=== PATIENT | female | born 1995 | race Two or more races ===

== ENCOUNTER 2021-10-17 17:25 | Inpatient (IN) | payer MEDICAID ==
[~2021-10-17] VITALS: Ht 165.1 cm; Wt 54.6 kg
[2021-10-17] MEDS: PANTOPRAZOLE 40 MG VIAL IV SCH (01:55)
--- NOTE | 2021-10-17 17:50 | NUR ---
TO ER BED 16, C/O LLQ ABD PAIN WITH VOMITING -DIARRHEA STARTED YESTERDAY, P/S 03/04, AAOX3, BREATHING EVEN AND NON LABORED, AWAITING MD MOROCHO
--- NOTE | 2021-10-17 18:30 | NUR ---
URINE COLLECTED AND SENT TO LAB
--- NOTE | 2021-10-17 18:45 | NUR ---
SALINE LOCK ESTABLISHED, BLOOD DRAWN AND SENT TO LAB
[2021-10-17] MEDS ORDERED: MORPHINE SULFATE INJ 2 MG/ML DISP.SYRIN ONE (18:54)
[2021-10-17] MEDS ORDERED: ONDANSETRON HCL/PF 4 MG/2 ML VIAL ONE (18:54)
[2021-10-17] MEDS ORDERED: ONDANSETRON HCL 4 MG/5 ML SOLUTION PO ONE ×2 (19:00)
[2021-10-17] MEDS ORDERED: IV NS 0.9% 1,000 ML BAG IV ONE ×3 (19:00→22:00)
[2021-10-17] MEDS ORDERED: ONDANSETRON HCL/PF 4 MG/2 ML VIAL IV ONE (19:00)
[2021-10-17] MEDS ORDERED: MORPHINE SULFATE INJ 2 MG/ML DISP.SYRIN IV ONE ×2 (19:00→20:00)
[2021-10-17] MEDS ORDERED: HYDROCODONE/APAP 5/325MG TABLET PO ONE (19:00)
[2021-10-17 19:23] LABS: BILIRUBIN,TOTAL 0.7 mg/dL (0.2-1.0); CALCIUM, SERUM 9.6 mg/dL (8.5-10.1); CREATININE 0.5 mg/dL (0.6-1.3); TOTAL PROTEIN, SERUM 8.5 g/dL (6.4-8.2)
[2021-10-17 19:49] LABS: POTASSIUM 3.4 mmol/L (3.5-5.1)
[2021-10-17 19:56] LABS: ALBUMIN 5.5 g/dL (3.4-5.0)
[2021-10-17 19:59] LABS: BASOPHILS % (AUTO) 0.1 % (0.0-2.0); HEMATOCRIT 38 % (33-45); HEMOGLOBIN 12.6 g/dL (11.5-14.8); LYMPHOCYTES # (AUTO) 0.7 K/uL (0.8-4.8); LYMPHOCYTES % (AUTO) 4.9 % (20.0-44.0); MEAN CORPUSCULAR HGB CONC 33 g/dl (31.0-36.0); MEAN CORPUSCULAR VOLUME 89 fL (82-100); MONOCYTES # (AUTO) 0.7 K/uL (0.1-1.30); MONOCYTES % (AUTO) 4.8 % (2.0-12.0); NEUTROPHILS # (AUTO) 13.4 K/uL (1.8-8.9); NEUTROPHILS % (AUTO) 90.2 % (43.0-81.0); PLATELET COUNT (AUTO) 200 K/uL (150-450); WHITE BLOOD COUNT (AUTO) 14.9 K/uL (4.3-11.0)
[2021-10-17] MEDS ORDERED: PIPERACILLIN /TAZOBACTAM 3.375 G in IV D5W 50 ML IV ONE (20:00)
[2021-10-17 20:05] LABS: COLOR,URINE YELLOW (YELLOW)
[2021-10-17 20:06] LABS: BILIRUBIN,URINE NEGATIVE (NEGATIVE); PROTEIN,URINE NEGATIVE (NEGATIVE); UGLUCOSE NEGATIVE (NEGATIVE)
[2021-10-17] MEDS ORDERED: PIPERACILLIN /TAZOBACTAM 3.375 G VIAL IV ONE (20:06)
[2021-10-17 20:07] LABS: LEUKOCYTE ESTERASE ,URINE NEGATIVE (NEGATIVE); NITRITE, URINE NEGATIVE (NEGATIVE); UROBILINOGEN,URINE 0.2 EU/dL (0.2)
[2021-10-17 20:16] LABS: BACTERIA,URINE None seen /HPF (None Seen); RBC,URINE 0-2 /HPF (0-2); SQUAMOUS EPITHELIAL CELL,UR 0-2 /HPF (None Seen); WBC,URINE 0-2 /HPF (0-3)
[2021-10-17 20:17] LABS: URIC ACID CRYSTALS,URINE Moderate /HPF (None Seen)
--- NOTE | 2021-10-17 20:21 | NUR ---
COVID SWAB COLLECTD AND SENT TO LAB
--- NOTE | 2021-10-17 21:08 | NUR ---
DR. DOWNEY ON THE PHONE WITH CANDELARIA MOYA
[2021-10-17] MEDS ORDERED: ONDANSETRON HCL/PF 4 MG/2 ML VIAL IVP PRN (22:30)
[2021-10-17] MEDS ORDERED: ACETAMINOPHEN 325 MG TABLET PO PRN (22:30)
[2021-10-17] MEDS ORDERED: HYDROMORPHONE INJ 2 MG/ML DISP.SYRIN IV PRN (22:30)
[2021-10-18] MEDS ORDERED: PIPERACILLIN /TAZOBACTAM 3.375 G VIAL IV ONE (01:53)
[2021-10-18] MEDS ORDERED: PANTOPRAZOLE 40 MG VIAL ONE (01:53)
[2021-10-18] MEDS ORDERED: POTASSIUM CL. PREMIX PERIPHER. 100 ML ONE (01:53)
[2021-10-18] MEDS: POTASSIUM CL. PREMIX PERIPHER. 50 ML IV SCH ×8 (01:55→21:16)
[2021-10-18] MEDS ORDERED: ZOSYN IVPB 3.375 G in IV D5W 50ml IV SCH (02:00)
--- NOTE | 2021-10-18 03:53 | NUR ---
REPORT GIVEN TO BORA ZULETA FOR REMA
--- NOTE | 2021-10-18 04:41 | NUR ---
PT TRANSFERRED TO [facility] VIA ACLS PROTOCOL. VSS. ALL BELONGINGS WITH PT.
[2021-10-18] MEDS: IV D5/ 0.9% NACL 1,000 ML IV PRN (05:11)
[2021-10-18 05:12] VITALS: BP 96/56
[2021-10-18 05:26] VITALS: BP 96/56
--- NOTE | 2021-10-18 05:33 | NUR ---
EMERGENCY PHYSICIAN NOTES PATIENT BROUGHT UP IN UNIT AT 0440 AM VIA STRETCHER, PATIENT IS FAIRLY WEAK. A/OX4. NOT EXHIBITING ANY S/S OF APPARENT DISTRESS ON ROOM AIR. C/O 04/04 PAIN IN THE ABDOMEN-- PAIN MANAGED WITH MEDICATION FOR NOW. R. AC #20G -- STARTED ON D5NS @75 CC/HR ORDERED. PATIENT DENIES SMOKING AND DRINKING. PER PATIENT SHE IS UP TO DATE WITH HER VACCINES INCLUDING COVID. PATIENT DENIES ANY CONCERNS AT THIS TIME. NEW ID BAND ON PATIENT, PATIENT BELONGINGS CHECKED WITH HELGA MCDONOUGH AND INVENTORIED. SAFETY IN PLACE. PATIENT CALLED THE SISTER HOA AND ACTUALLY GOT TO TALK WITH SISTER AND GAVE UP DATE ABOUT PATIENT BEING ADMITTED. V/S FOLLOWS: 96/56, HR-58, RR-18, T-98.2, SATURATING 98% ON ROOM AIR, WT-120.7, PT. ORIENTED TO THE USE OF CALL LIGHT AND UNIT, STATES ACKNOWLEDGEMENT. NO NEEDS AT THIS TIME. WILL CONT. WITH PATIENT'S CARE PLAN.
[2021-10-18 07:12] LABS: BASOPHILS % (AUTO) 0.2 % (0.0-2.0); EOSINOPHILS % (AUTO) 0.7 % (0.0-6.0); HEMATOCRIT 32 % (33-45); HEMOGLOBIN 10.7 g/dL (11.5-14.8); LYMPHOCYTES # (AUTO) 1.5 K/uL (0.8-4.8); LYMPHOCYTES % (AUTO) 17.6 % (20.0-44.0); MEAN CORPUSCULAR HGB CONC 34 g/dl (31.0-36.0); MEAN CORPUSCULAR VOLUME 89 fL (82-100); MONOCYTES % (AUTO) 11.4 % (2.0-12.0); NEUTROPHILS % (AUTO) 70.1 % (43.0-81.0); PLATELET COUNT (AUTO) 170 K/uL (150-450); RED BLOOD CELL COUNT(AUTO) 3.58 MIL/uL (4.0-5.2); WHITE BLOOD COUNT (AUTO) 8.6 K/uL (4.3-11.0)
--- NOTE | 2021-10-18 07:22 | NUR ---
MS RN CLOSING NEEDS ATTENDED. REPORT GIVEN TO BLAYNE FOR CONTINUITY OF CARE.
--- NOTE | 2021-10-18 07:55 | NUR ---
RN OPENING NOTE PATIENT IN BED RESTING AWAKE, A/OX4, NO S/S OF PAIN NOTED AT THIS TIME. ON ROOM AIR, NO DISTRESS OR SHORTNESS OF BREATH NOTED. IV ACCESS R AC #20, INTACT, PATENT AND FLUSHING WELL. FALL AND SAFETY MEASURES IN PLACE, BED ALARM ON. BED IN LOW AND LOCK POSITION, CALL LIGHT AND TABLE WITHIN EASY REACH, SIDE RAILS UP X2. WILL CONTINUE TO MONITOR.
[2021-10-18 08:00] VITALS: BP 93/51
[2021-10-18] MEDS: PANTOPRAZOLE 40 MG VIAL IV SCH (09:29)
[2021-10-18] MEDS: PIPERACILLIN /TAZOBACTAM 3.375 G in IV D5W 100 ML IV SCH ×2 (11:01→17:45)
[2021-10-18 11:51] LABS: CREATININE 0.5 mg/dL (0.6-1.3); MAGNESIUM 1.9 mg/dL (1.8-2.4); PHOSPHORUS 3.4 mg/dL (2.5-4.9)
[2021-10-18 16:00] VITALS: BP 93/56
--- NOTE | 2021-10-18 16:19 | NUR ---
RN NOTE DOCTOR AARTI ORDER TO CANCELLED CT ABDOMEN PELVIS WITH CONTRAST AND TO START PATIENT ON FULL LIQUID DIET.
[2021-10-18] MEDS: IBUPROFEN 400 MG TABLET PO SCH ×2 (17:45→20:30)
--- NOTE | 2021-10-18 19:17 | NUR ---
RN CLOSING NOTE PATIENT IN BED RESTING AWAKE, A/OX4, NO S/S OF PAIN NOTED AT THIS TIME. ON ROOM AIR, NO DISTRESS OR SHORTNESS OF BREATH NOTED. IV ACCESS R AC #20, INTACT, PATENT AND FLUSHING WELL. FALL AND SAFETY MEASURES IN PLACE, BED ALARM ON. BED IN LOW AND LOCK POSITION, CALL LIGHT AND TABLE WITHIN EASY REACH, SIDE RAILS UP X2. WILL ENDORSE TO AP OPERATOR.
[2021-10-18 20:00] VITALS: BP 100/59
--- NOTE | 2021-10-18 20:05 | NUR ---
MS/TELE/RN RECEIVED PATIENT IN BED AWAKE, ALERT, ORIENTED, COMFORTABLE, NO DISTRESS NOTED, CALL LIGHT IN REACH, NEEDS ATTENDED, WILL MONITOR,
--- NOTE | 2021-10-18 20:42 | NUR ---
MS/TELE/RN MOTRIN 400 MG PO WAS NOT ADMINISTERED AT 2029 IT WAS TOO SOON FROM LAST DOSE AT 1744.
[2021-10-19] MEDS: IBUPROFEN 400 MG TABLET PO SCH ×2 (02:07→07:57)
[2021-10-19] MEDS: IV D5/ 0.9% NACL 1,000 ML IV PRN (02:19)
[2021-10-19] MEDS: PIPERACILLIN /TAZOBACTAM 3.375 G in IV D5W 100 ML IV SCH (02:19)
[2021-10-19 06:28] LABS: BASOPHILS % (AUTO) 0.5 % (0.0-2.0); EOSINOPHILS % (AUTO) 2.8 % (0.0-6.0); HEMATOCRIT 32 % (33-45); HEMOGLOBIN 10.6 g/dL (11.5-14.8); LYMPHOCYTES # (AUTO) 1.9 K/uL (0.8-4.8); LYMPHOCYTES % (AUTO) 40.3 % (20.0-44.0); MEAN CORPUSCULAR HGB CONC 34 g/dl (31.0-36.0); MEAN CORPUSCULAR VOLUME 90 fL (82-100); MONOCYTES # (AUTO) 0.5 K/uL (0.1-1.30); MONOCYTES % (AUTO) 10.6 % (2.0-12.0); NEUTROPHILS # (AUTO) 2.2 K/uL (1.8-8.9); NEUTROPHILS % (AUTO) 45.8 % (43.0-81.0); PLATELET COUNT (AUTO) 169 K/uL (150-450); RED BLOOD CELL COUNT(AUTO) 3.51 MIL/uL (4.0-5.2); WHITE BLOOD COUNT (AUTO) 4.8 K/uL (4.3-11.0)
--- NOTE | 2021-10-19 06:41 | NUR ---
MS/TELE/RN PATIENT IS AWAKE, COMFORTABLE, NO C/O PAIN, NO DISTRESS NOTED, IVF INFUSING, CALL LIGHT IN REACH, ALL NEEDS ATTENDED AT THIS TIME, WILL CONTINUE TO MONITOR.
--- NOTE | 2021-10-19 07:13 | NUR ---
RN OPENING NOTE RECEIVED PATIENT IN BED RESTING AWAKE, A/OX4, NO S/S OF PAIN NOTED AT THIS TIME. ON ROOM AIR, NO DISTRESS OR SHORTNESS OF BREATH NOTED. IV ACCESS R AC #20 ONGOING IVF OF NS X 75CC/HR INFUSING WELL, NO S/SX OF INFILTRATION, INTACT, PATENT AND FLUSHING WELL. FALL AND SAFETY MEASURES IN PLACE, BED ALARM ON. BED IN LOW AND LOCK POSITION, CALL LIGHT AND TABLE WITHIN EASY REACH, SIDE RAILS UP X2. WILL CONTINUE TO MONITOR PATIENT ACCORDINGLY.
[2021-10-19 07:25] LABS: CALCIUM, SERUM 8.3 mg/dL (8.5-10.1); CREATININE 0.5 mg/dL (0.6-1.3); MAGNESIUM 2.1 mg/dL (1.8-2.4); PHOSPHORUS 3.4 mg/dL (2.5-4.9); POTASSIUM 3.5 mmol/L (3.5-5.1)
[2021-10-19 08:00] VITALS: BP 90/55
[2021-10-19] MEDS: PANTOPRAZOLE 40 MG VIAL IV SCH (08:05)
[2021-10-19] MEDS ORDERED: CIPROFLOXACIN HCL 250 MG TABLET PO SCH (09:30)
[2021-10-19] MEDS ORDERED: oxyCODONE/APAP (5/325 MG) 1 UDTAB TABLET PO PRN (09:30)
[2021-10-19] MEDS: METRONIDAZOLE 500 MG TABLET PO SCH ×2 (09:48→12:38)
[2021-10-19] MEDS ORDERED: CIPR-263 PO (10:26)
[2021-10-19] MEDS ORDERED: METR500T PO (10:26)
--- NOTE | 2021-10-19 13:10 | NUR ---
LOOP CUTTER NOTES DISCHARGED PATIENT IN STABLE CONDITION. VITAL SIGNS WITHIN NORMAL LIMITS. IV ACCESS REMOVED, COVERED WITH GAUZE, NO BLEEDING NOTED. DISCHARGE INSTRUCTIONS AND FOLLOW UP DISCUSSED WITH PATIENT, VERBALIZED UNDERSTANDING. SOFT DIET TOLERATED. NO COMPLAINTS OF PAIN AT THE TIME OF DISCHARGE. BELONGINGS ACCOUNTED AND SIGNED FOR. WHEELED TO LOBBY SAFELY, ACCOMPANIED BY NIEVES FRASER). LEFT UNIT IN STABLE CONDITION. MD AND CHARGE NURSE AWARE OF DISCHARGE.
== END 2021-10-19 14:20 | disposition home or self-care (01) | DRG 249 ==
LOC: ER 17:38 → TRANSITION 10-18 01:34 → MED 10-18 03:43
PROVIDERS: ADMIT Nurse Practitioner Acute Care; ATTEND Internal Medicine
DX: A08.4 Viral intestinal infection, unspecified (principal); D72.829 Elevated white blood cell count, unspecified; R10.31 Right lower quadrant pain; E87.6 Hypokalemia; Z20.822 Contact with and (suspected) exposure to COVID-19
CPT/HCPCS: 36415; 76856-TC; 80048-TC; 80061-TC; 80076-TC; 81001; 83690-TC; 83735-TC; 84100-TC; 84703-TC; 85025-TC; 87040-TC; 87081-TC; C9113; C9803; G0378; J1170; J2270; J2405; J2543; J3480; J7030; J7042; J7050; J7060